=== PATIENT | male | born 1995 | race Caucasian/White ===

== ENCOUNTER 2019-07-27 18:10 | Emergency (ER) | payer OTHER ==
[~2019-07-27] VITALS: Ht 177.8 cm; Wt 72.6 kg
[2019-07-27 18:20] VITALS: BP 127/78
--- NOTE | 2019-07-27 19:27 | NUR ---
PT D/C HOME W/ ACI AND PRESCRIPTION IN STABLE CONDITION.
[2019-07-30 17:08] LABS: *HSV 2 DNA PCR Negative (Negative)
== END 2019-07-27 19:29 | disposition home or self-care (01) ==
LOC: ER 18:14
DX: K64.4 Residual hemorrhoidal skin tags (principal); L98.9 Disorder of the skin and subcutaneous tissue, unspecified; Z86.19 Personal history of other infectious and parasitic diseases
CPT/HCPCS: 87491; 87529; 87591; 99283; A6403; 36415